=== PATIENT | male | born 1960 | race Two or more races ===

== ENCOUNTER 2025-04-28 16:36 | Emergency (ER) | payer OTHER, MEDICAID ==
[~2025-04-28] VITALS: Ht 157.5 cm; Wt 79.8 kg
[~2025-04-28 16:36] MED LIST: HYDR-4902 PO; IBU600T PO
--- NOTE | 2025-04-28 17:08 | ED.PDOC ---
Musculoskeletal HPI Comments 64 y/o M, with PMHx of thyroid disease, cancer, COPD, and HTN presents to the ED for CC of right hand pain/swelling. Patient reports, that he had a tumor excision on his right hand on Tuesday (04/23/25). Patient endorses, as of today (04/28/25) the postoperative site began to swell along with his right hand and arm. Patient comments, that he has a follow up appointment with provider who preformed procedure in [id number]. Patient denies fever, chills, sweats, palpitations, nausea, vomiting, or weakness. No other symptoms or modifying factors present at this time. Vital signs were stable on arrival. Chief Complaint: Upper Extremity Time Seen by MD: 17:00 Primary Care Provider: LAMINE Germain Notes: Nurses Notes, Medications, Allergies Allergies: Coded Allergies: NO KNOWN ALLERGIES (Unverified , 10/02/24) Home Meds Active Scripts Ibuprofen Micronized (MOTRIN TABLET) 600 Mg Tb, 600 MG PO TID PRN, #40 TAB *Black box warning-NSAIDS can increase risk of UT & hypertension, GI irritation, ulceration, bleed, perferation. Do not use post cardiac surgery. Use short duration/lowest effective dose. Prov:MAUREEN ARANDA MD 10/02/24 Hydrocodone-Acetaminophen (Hydrocodone Bitartrate/AC 5-325 mg) 1 Tab Tab, 1 TAB PO Q8HP PRN for 3 Days, #9 TAB Prov:MAUREEN ARANDA MD 10/02/24 Information Source: Patient Mode of Arrival: Ambulatory Location: Right Extremity Location: Hand Timing: Hours Prehospital treatment: None Severity: Moderate Able to Move Extremity: Yes Bear Weight: Fully Pain: Moderate Hand Dominance: Right Mechanism: Other (postoperative) Circumstances: Unknown Onset of Symptoms: Spontaneous Symptoms: Swelling, Pain DVT Risk Factors: NONE Last Tetanus: Unknown Associated signs and symptoms: Hand pain Past Medical History PAST MEDICAL HISTORY: Cancer, COPD, HTN, Thyroid Surgical History: Denies all surgeries Surgical History (Other): Recent soft tissue excision on right hand Family History Family History: Reviewed,noncontributory to illness, No family hx of Cancer, No family hx of DM, No family hx of Heart leonela, No family hx of HTN, No family hx ofKidney leonela, No family hx of Liver leonela, No family hx of Lung leonela, No family hx of Stroke Social History Smoker: Non-Smoker Alcohol: Denies ETOH Use Drugs: Denies Drug Use Lives In: Home Constitutional: denies: chills, diaphoresis, fatigue, fever, malaise, sweats, weakness, others EENTM: denies: blurred vision, double vision, ear bleeding, ear discharge, ear drainage, ear pain, ear ringing, eye pain, eye redness, hearing loss, mouth pain, mouth swelling, nasal discharge, nose bleeding, nose congestion, nose pain, photophobia, tearing, throat pain, throat swelling, voice changes, others Respiratory: denies: cough, hemoptysis, orthopnea, SOB at rest, shortness of breath, SOB with excertion, stridor, wheezing, others Cardiovascular: denies: chest pain, dizzy spells, diaphoresis, Dyspnea on exertion, edema, irregular heart beat, left arm pain, lightheadedness, palpitations, PND, syncope, others Gastrointestinal: denies: abdomen distended, abdominal pain, blood streaked bowels, constipated, diarrhea, dysphagia, difficulty swallowing, hematemesis, melena, nausea, poor appetite, poor fluid intake, rectal bleeding, rectal pain, vomiting, others Genitourinary: denies: burning, dysuria, flank pain, frequency, hematuria, incontinence, penile discharge, penile sore, pain, testicle pain, testicle swelling, urgency, others Neurological: denies: dizziness, fainting, headache, left sided numbness, left sided weakness, numbness, paresthesia, pre-existing deficit, right sided numbness, right sided weakness, seizure, speech problems, tingling, tremors, w eakness, others Musculoskeletal: reports: others (right hand pain and swelling); denies: back pain, gout, joint pain, joint swelling, muscle pain, muscle stiffness, neck pain Integumetry: denies: bruises, change in color, change in hair/nails, dryness, laceration, lesions, lumps, rash, wounds, others Allergic/Immunocompromised: denies: Difficulty Healing, Frequent Infections, Hives, Itching, others Hematologic/Lymphatic: denies: anemia, blood clots, easy bleeding, easy bruising, swollen glands, others Endocrine: denies: excessive hunger, excessive sweating, excessive thirst, excessive urination, flushing, intolerance to cold, intolerance to heat, unexplained weight gain, unexplained weight loss, others Psychiatric: denies: anxiety, bipolar disorder, depression, hopeless, panic disorder, schizophrenia, sleepless, suicidal, others All Other Systems: Reviewed and Negative Physical Exam General Appearance: Moderate Distress (Wrvi-zf-rmigtgor distress due to right hand concerns.), Obese HEENT: Normal ENT Inspection, Pharynx Normal, TMs Normal Neck: Full Range of Motion, Non-Tender, Normal, Normal Inspection Respiratory: Chest Non-Tender, Lungs Clear, No Accessory Muscle Use, No Respiratory Distress, Normal Breath Sounds Cardiovascular: No Edema, No JVD, No Murmur, No Gallop, Normal Peripheral Pulses, Regular Rate/Rhythm Breast Exam: Deferred Gastrointestinal: No Organomegaly, Non Tender, No Pulsatile Mass, Normal Bowel Sounds, Soft Genitalia: Deferred Pelvic: Deferred Rectal: Deferred Extremities: Other (Patient displays a postoperative incision that has sutured on the dorsal aspect of the right hand on top of the 1st MCP region. Angry looking area with edema and erythema throughout the hand extending up into the distal forearm. Significant reduced range of motion. No weepage noted.) Neurologic: Alert, No Motor Deficits, Normal Affect, Normal Mood, No Sensory Deficits Cerebellar Function: NOT DONE Reflexes: NOT DONE Skin: Dry, Normal Color, Warm Lymphatic: No Adenopathy Was a procedure done? Was a procedure done?: No Differential Diagnosis EXT Differential Diagnosis: Cellulitis, Other (Skin infection, postoperative swelling, osteomyelitis) X-Ray, Labs, Meds, VS Vital Signs Date Time Temp Pulse Resp B/P (MAP) Pulse Ox O2 Delivery O2 Flow Rate FiO2 04/28/25 19:08 97.8 75 20 135/85 (102) 96 97.8 04/28/25 19:08 75 20 96 Room Air 04/28/25 16:55 97.8 75 16 156/90 (112) 98 97.8 Lab Test 04/28/25 17:23 Range/Units White Blood Count 10.7 4.4-10.8 10^3/uL Red Blood Count 5.18 4.5-5.90 10^6/uL Hemoglobin 15.2 13.5-17.5 g/dL Hematocrit 44.3 41.0-53.0 % Mean Corpuscular Volume 85.6 80.0-100.0 fL Mean Corpuscular Hemoglobin 29.3 28.0-32.0 pg Mean Corpuscular Hemoglobin Concent 34.2 32.0-36.0 g/dL Red Cell Distribution Width 14.0 11.8-14.3 % Platelet Count 307 140-450 10^3/uL Mean Platelet Volume 6.7 L 6.9-10.8 fL Neutrophils (%) (Auto) 74.2 37.0-80.0 % Lymphocytes (%) (Auto) 17.7 10.0-50.0 % Monocytes (%) (Auto) 6.7 0.0-12.0 % Eosinophils (%) (Auto) 0.4 0.0-7.0 % Basophils (%) (Auto) 1.0 0.0-2.0 % Neutrophils # (Auto) 7.9 1.6-8.6 10 ^3/uL Lymphocytes # (Auto) 1.9 0.4-5.4 10 ^3/uL Monocytes # (Auto) 0.7 0-1.3 10 ^3/uL Eosinophils # (Auto) 0 0-0.8 10 ^3/uL Basophils # (Auto) 0.1 0-0.2 10 ^3/uL Nucleated Red Blood Cells 0.0 % Sodium Level 133 L 136-145 mmol/L Potassium Level 4.1 3.5-5.1 mmol/L Chloride Level 102 98-107 mmol/L Carbon Dioxide Level 22 20-31 mmol/L Anion Gap 9 5-15 Blood Urea Nitrogen 9 9-23 mg/dL Creatinine 0.87 0.700-1.30 mg/dL Glomerular Filtration Rate Calc 96 >90 mL/min BUN/Creatinine Ratio 10.3 10.0-20.0 Serum Glucose 98 74-106 mg/dL Calcium Level 9.1 8.7-10.4 mg/dL Current Medications Medications (Trade) Dose Ordered Sig/Trixie Route Start Time Stop Time Status Last Admin Diphtheria/ Tetanus/Acell Pertussis (Boostrix T-Dap) 0.5 ml ONCE ONCE IM 04/28/25 17:00 04/28/25 17:01 DC 04/28/25 17:45 Trimethoprim/ Sulfamethoxazole (Bactrim Ds Tablet) 1 tab ONCE ONCE PO 04/28/25 17:00 04/28/25 17:01 DC 04/28/25 17:43 Acetaminophen/ Hydrocodone Bitart ([place] 10/325MG Tab) 1 tab ONCE ONCE PO 04/28/25 17:00 04/28/25 17:01 DC 04/28/25 17:43 X-Ray, Labs, Meds, VS Comment All studies performed in the ED were evaluated by me personally. Serum studies were unremarkable for any systemic concerns including rule out of any bacteremia. CT evaluation was unremarkable for any osteomyelitis. Patient appears to have a local cellulitis due to his postoperative state. Advised patient utilize antibiotics as directed and follow up with his surgeon as scheduled. Time of 1ST Reevaluation: 19:44 Reevaluation 1ST: Improved Consultation: PCP Patient Education/Counseling: Diagnosis, Treatment Family Education/Counseling: Diagnosis, Treatment, No Family Present Sepsis Recent Procedure: No On Antibiotic Therapy: No Respiratory Rate >20: No Heart Rate >90: No Temp<36 C (96.8 F) or >38.3 C: No SBP <90 or MAP <65 mmHG: No New Acute Mental Status Change: No Is the patient on CPAP, BIPAP,: No IV fluid given: No Departure 1 Departure Time of Disposition: 19:44 Impression: Primary Impression: Cellulitis Disposition: HOME / SELF CARE / HOMELESS Condition: Stable Additional Instructions: Advised patient utilize antibiotics as directed until completion as well as pain medication as needed. e-Prescriptions Hydrocodone-Acetaminophen (Hydrocodone Bitartrate/AC 5-325 mg) 1 Tab Tab 1 TAB PO Q6HP PRN, #15 TAB Prov: SHIRLEY GRAY PAC 04/28/25 Ibuprofen Micronized (Ibuprofen) 800 Mg Tab 800 MG PO Q8HP PRN, #20 TAB Prov: SHIRLEY GRAY PAC 04/28/25 Sulfamethoxazole W/Trimethopri (Bactrim Ds Tablet) 1 Tab Tb 1 TAB PO BID for 7 Days, #14 TAB Prov: SHIRLEY GRAY PAC 04/28/25 Discharged With: Self, Friend Critical Care Note Critical Care Time?: No Stability Stability form required: No Heart Score Heart Score: Heart Score Response (Comments) Value History N/A 0 EKG N/A 0 Age N/A 0 Risk Factors N/A 0 Troponin N/A 0 Total 0 I personally scribed for SHIRLEY GRAY PAC ([email or web address]) on 04/28/25 at 17:08. Electronically submitted by Deb Restrepo ([email or web address]). SHIRLEY GRAY PAC Apr 28, 2025 17:08
[2025-04-28 17:39] LABS: Hematocrit 44.3 % (41.0-53.0); Hemoglobin 15.2 g/dL (13.5-17.5); Mean Corpuscular Hemoglobin 29.3 pg (28.0-32.0); Mean Corpuscular Volume 85.6 fL (80.0-100.0); Nucleated Red Blood Cells % 0.0 %
[2025-04-28] MEDS: SULFAMETHOX W/TRIMETH(800/160MG) DS TAB PO ONE (17:43)
[2025-04-28] MEDS: HYDROcodone-ACET 10/325MG TAB PO ONE (17:43)
[2025-04-28] MEDS: TETANUS-DIPTH-ACEL PERTUSSIS 0.5ML SYR Tdap IM ONE (17:45)
[2025-04-28 17:56] LABS: Anion Gap 9 (5-15); Carbon Dioxide 22 mmol/L (20-31); Chloride 102 mmol/L (98-107); Potassium 4.1 mmol/L (3.5-5.1)
[2025-04-28 17:57] LABS: Calcium 9.1 mg/dL (8.7-10.4)
[2025-04-28 18:01] LABS: Glucose 98 mg/dL (74-106)
[2025-04-28 18:02] LABS: BUN/Creatinine Ratio 10.3 (10.0-20.0)
[2025-04-28 18:07] LABS: Blood Urea Nitrogen 9 mg/dL (9-23); Sodium 133 mmol/L (136-145)
--- NOTE | 2025-04-28 18:54 | DVH ---
INDICATION: Postoperative complications COMPARISON: None TECHNIQUE: CT of the rightleft shoulder was performed without contrast. Volume transverse images were obtained and reconstructed in multiple planes using bone and soft tissue algorithms. CONTRAST: None Radiation Dose Information: CTDI volume is 7.75 mGy. Dose-length product is 200.87 mGy*cm FINDINGS: The alignment is normal. The joint spaces are normal. The glenohumeral joint is normal. The acromioclavicular joint is normal. Age indeterminate, possibly chronic fracture of the base of the 5th metacarpal. [id number] soft-tissue swelling of the dorsum of the hand. The imaged portions of the mediastinum and rightleft hemithorax are normal. IMPRESSION: Age indeterminate, possibly chronic fracture of the base of the 5th metacarpal.
[2025-04-28 19:08] VITALS: BP 135/85; PULSE 75; RESP 20; TEMP 97.8; O2SAT 96
[2025-04-28] MEDS ORDERED: BACDST PO (19:46)
[2025-04-28] MEDS ORDERED: IBUP-1455 PO (19:46)
[2025-04-28] MEDS ORDERED: HYDR-4902 PO (19:46)
== END 2025-04-28 20:08 | disposition home or self-care (01) ==
LOC: ER 16:36
DX: L03.113 Cellulitis of right upper limb (principal); J44.9 Chronic obstructive pulmonary disease, unspecified; I10 Essential (primary) hypertension
CPT/HCPCS: 36415; 73200; 80048; 85025; 90471; 90715